=== PATIENT | male | born 1995 | race Caucasian/White ===

== ENCOUNTER 2017-06-06 16:05 | Emergency (ER) | payer BC, OTHER ==
[2017-06-06 16:05] VITALS: BP 140/88
[2017-06-06] MEDS ORDERED: CIPR7.5D RIGHT EAR (17:16)
[2017-06-06] MEDS ORDERED: NAPR-683 PO (17:16)
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
== END 2017-06-06 17:20 | disposition home or self-care (01) ==
LOC: ER 16:05
DX: Z77.098 Contact with and (suspected) exposure to other hazardous, chiefly nonmedicinal, chemicals (principal); H60.91 Unspecified otitis externa, right ear
CPT/HCPCS: 99283